=== PATIENT | male | born 1990 | race Caucasian/White ===

== ENCOUNTER 2020-11-04 02:45 | Emergency (ER) | payer OTHER ==
[2020-11-04 03:38] LABS: BASOPHIL 0.5 % (0-2); EOSINOPHIL 0.1 % (0-5); HCT 43.5 % (42.0-52.0); HGB 15.3 g/dl (13.2-18.0); MCH 30.3 pg (25.0-31.0); MCHC 35.2 g/dL (32.0-36.0); MCV 86.1 fL (78.0-100.0); MONOCYTE 6.6 % (0-12); MPV 10.9 fL (6.0-9.5); NEUTROPHIL 80.5 % (41-80); NRBC 0; PLT 164 K/uL (150-400); RBC 5.05 M/uL (4.70-6.00); RDW 12.8 % (11.5-14.0); WBC 9.6 K/uL (4.0-10.5)
[2020-11-04 03:53] LABS: ALBUMIN 3.6 g/dL (3.4-5.0); BILIRUBIN - TOTAL 0.5 mg/dL (0.2-1.0); BUN/CREAT RATIO (CALC) 18.9 RATIO; CREATININE 0.9 mg/dL (0.67-1.17); GLOBULIN (CALCULATION) 3.6 g/dL; POTASSIUM 3.3 mmol/L (3.5-5.1); TOTAL PROTEIN 7.2 g/dL (6.4-8.2)
[2020-11-04 04:16] LABS: CORONAVIRUS 2019 SARS-COV-2 NEGATIVE (NEGATIVE); INFLUENZA A NAA NEGATIVE (NEGATIVE)
== END 2020-11-04 04:41 | disposition home or self-care (01) ==
LOC: FER 02:45
PROVIDERS: Emergency Medicine Emergency Medical Services
DX: B34.9 Viral infection, unspecified (principal); F17.290 Nicotine dependence, other tobacco product, uncomplicated; Z88.0 Allergy status to penicillin; Z20.822 Contact with and (suspected) exposure to COVID-19
CPT/HCPCS: 36415; 80053; 85025; J1100; J1885; J2405; J7030; U0002